=== PATIENT | female | born 1995 | race African-American/Black ===

== ENCOUNTER 2019-09-10 07:00 | Day surgery (SDC) | payer OTHER ==
[~2019-09-10] VITALS: Ht 165.1 cm; Wt 59.0 kg
[2019-09-10] MEDS ORDERED: SKIN ADHESIVE 0.7 GM EA TOP ONE (07:35)
[2019-09-10] MEDS ORDERED: METHYLENE BLUE 50 MG/10 ML AMP IV ONE (07:38)
[2019-09-10] MEDS ORDERED: BUPIVACAINE HCL/EPINEPHRINE 0.5%/0.0005 30ML ONE (07:40)
[2019-09-10] MEDS ORDERED: VASOPRESSIN 20 UNIT/ML 1ML ONE (07:45)
[2019-09-10] MEDS ORDERED: LACTATED RINGERS 1,000 ML IV SCH (08:00)
[2019-09-10 08:03] LABS: UCG SCREEN NEGATIVE
[2019-09-10 08:10] LABS: CLARITY URINE CLEAR (CLEAR); COLOR URINE YELLOW (YELLOW); KETONES URINE NEGATIVE (NEGATIVE); LEUKOCYTE ESTERASE URINE NEGATIVE (NEGATIVE); NITRITE URINE NEGATIVE (NEGATIVE); OCCULT BLOOD URINE NEGATIVE (NEGATIVE); PROTEIN URINE NEGATIVE (NEGATIVE); SPECIFIC GRAVITY URINE 1.021 (1.005-1.030); UROBILINOGEN URINE 0.2 E.U./dL (0.2-1.0)
[2019-09-10] MEDS ORDERED: FENTANYL CITRATE/PF 50MCG/ML 2ML VIAL ONE (08:25)
[2019-09-10] MEDS ORDERED: PROPOFOL 200MG/20ML VIAL IV ONE (08:25)
[2019-09-10] MEDS ORDERED: MIDAZOLAM HCL 2 MG/2 ML VIAL ONE (08:25)
[2019-09-10] MEDS ORDERED: EPHEDRINE SULFATE 50MG/ML VIAL ONE (08:26)
[2019-09-10] MEDS ORDERED: DEXAMETHASONE 4MG/ML 1ML VIAL ONE (08:26)
[2019-09-10] MEDS ORDERED: ONDANSETRON HCL 4MG/2ML INJ ONE (08:26)
[2019-09-10] MEDS ORDERED: LIDOCAINE HCL/PF 1% 10 MG/ML 5ML VIAL ONE (08:26)
[2019-09-10] MEDS ORDERED: SODIUM CHLORIDE 0.9% 10ML VIAL ONE ×2 (08:26→09:35)
[2019-09-10] MEDS ORDERED: ROCURONIUM BROMIDE 10MG/ML VIAL 5ML IV ONE (08:26)
[2019-09-10] MEDS ORDERED: SUCCINYLCHOLINE CHLORIDE 200MG/10ML IV ONE (08:26)
[2019-09-10 08:31] LABS: BASOPHILS % 0.4 % (0.0-2.0); EOSINOPHILS % 3.6 % (0.0-5.0); HEMATOCRIT. 38.9 % (36.0-48.0); LYMPHOCYTES % 32.9 % (20.0-50.0); MEAN CORPUSCULAR HEMOGLOBIN 29.2 pg (28.0-32.0); MEAN CORPUSCULAR VOLUME 87.2 fL (81.0-99.0); MEAN PLATELET VOLUME 9.7 fl (7.4-10.4); MONOCYTES % 7.6 % (2.0-8.0); NEUTROPHILS % 55.5 % (40.0-76.0); PLATELET 156 x1000/uL (130-400); RED BLOOD CELL COUNT 4.46 mill/uL (4.2-5.4); RED CELL DISTRIBUTION WIDTH 13.5 % (11.6-14.6)
[2019-09-10 08:32] LABS: INR 1.1; PARTIAL THROMBOPLASTIN TIME 31.3 sec (23.4-31.0)
[2019-09-10 08:39] LABS: CHLORIDE 109 mEq/L (98-107)
[2019-09-10] MEDS ORDERED: CEFAZOLIN SODIUM 1000MG/VIAL ONE (09:35)
[2019-09-10] MEDS ORDERED: GLYCOPYRROLATE 0.2 MG/ML 2ML VIAL ONE (10:45)
[2019-09-10] MEDS ORDERED: NEOSTIGMINE METHYLSULFATE 1MG/ML 10 ML VIAL ONE (10:46)
[2019-09-10] MEDS: HYDROMORPHONE HCL/PF 2MG/ML CPJ IV PRN ×2 (12:06→12:16)
[2019-09-10 12:16] VITALS: BP 108/64
== END 2019-09-10 13:50 | disposition home or self-care (01) ==
LOC: OR 07:00
PROVIDERS: ATTEND Obstetrics & Gynecology Obstetrics
DX: N92.0 Excessive and frequent menstruation with regular cycle (principal); R10.2 Pelvic and perineal pain; N80.9 Endometriosis, unspecified; Z72.89 Other problems related to lifestyle; Z98.890 Other specified postprocedural states
CPT/HCPCS: 36415; 58350; 58662; 80048; 81003; 81025; 85025; 85610; 85730; J0171; J0330; J0690; J1100; J1170; J2250; J2405; J2704; J2710; J3010; J3490; Q9968